=== PATIENT | female | born 1955 | race Caucasian/White ===

== ENCOUNTER 2017-07-02 20:18 | Emergency (ER) | payer BC ==
--- NOTE | 2017-07-02 21:09 | EDM.PDOC ---
ED HPI GENERAL MEDICAL PROBLEM - General Chief Complaint: General Stated Complaint: HIGH BLOOD PRESSURE Time Seen by Provider: 07/02/17 20:55 Source of Information: Reports: Patient History Limitations: Reports: No Limitations - History of Present Illness INITIAL COMMENTS - FREE TEXT/NARRATIVE: This lady comes in because of high blood pressure. She said her blood pressures been up a couple of weeks. She takes her blood pressure daily at her records it. She has an appointment with her doctor in the near future. She also gets headaches off and on all the time because of some occipital neuralgia and she does have a mild headache today. Today she went to the pharmacy and checked her blood pressure and it was about roughly 200/100 or less she took an additional one half tablet of lisinopril. So she got a total of 30 mg lisinopril today. That was at the recommendation of the pharmacist. She takes metoprolol tartrate 25 mg twice daily. Her last dose was about 6:30 PM or 3 hours ago previously she take hydrochlorothiazide. She likes salt a lot. Apparently she eats pretzels and chips and that type of thing. She doesn't use a salt substitute. Other than the mild headache she's not having any symptoms of end organ damage - Related Data Allergies Allergy/AdvReac Type Severity Reaction Status Date / Time venom-honey bee Allergy Severe Anaphylactic Verified 03/06/16 07:13 [bee venom (honey bee)] Shock cefaclor [Cefaclor] Allergy Cannot Verified 03/06/16 07:13 Remember cefuroxime Allergy Rash Verified 03/06/16 07:13 clarithromycin Allergy Cannot Verified 03/06/16 07:13 Remember colesevelam [Colesevelam] Allergy Cannot Verified 03/06/16 07:13 Remember colesevelam HCl Allergy Cannot Verified 03/06/16 07:13 [From WelChol] Remember estrogens, conjugated Allergy Other Verified 03/06/16 07:13 [From Prempro] lansoprazole [From Prevacid] Allergy Rash Verified 03/06/16 07:13 medroxyprogesterone acetate Allergy Other Verified 03/06/16 07:13 [From Prempro] metronidazole [From Flagyl] Allergy Rash Verified 03/06/16 07:13 Metronidazole HCl Allergy Rash Verified 03/06/16 07:13 [From Flagyl] nitrofurantoin Allergy Cannot Verified 03/06/16 07:13 Remember Penicillins Allergy Rash Verified 03/06/16 07:13 simvastatin Allergy Cannot Verified 03/06/16 07:13 Remember sulfamethoxazole Allergy Cannot Verified 03/06/16 07:13 [From Bactrim] Remember trimethoprim [From Bactrim] Allergy Cannot Verified 03/06/16 07:13 Remember azithromycin [From Zithromax] AdvReac Indigestion Verified 03/06/16 07:13 erythromycin base AdvReac Nausea Verified 03/06/16 07:13 [Erythromycin Base] levofloxacin [From Levaquin] AdvReac Dizziness Verified 03/06/16 07:13 metaxalone [From Skelaxin] AdvReac Dizziness Verified 03/06/16 07:13 omeprazole AdvReac Diarrhea Verified 03/06/16 07:13 tetracycline [Tetracycline] AdvReac Nausea and Verified 03/06/16 07:13 Vomiting tramadol AdvReac Dizziness Verified 03/06/16 07:13 Home Meds: Home Meds *Albuterol Sulfate 2 puff INH QID PRN 05/17/13 [History] Cholecalciferol (Vitamin D3) [Vitamin D3] 10,000 unit PO DAILY 05/17/13 [History ] EPINEPHrine [Epinephrine] 0.3 mg SQ ASDIRECTED PRN 05/17/13 [History] Lisinopril [Lisinopril] 30 mg PO DAILY 05/17/13 [History] Meclizine [Antivert] 50 mg PO TID PRN 05/17/13 [History] Cyanocobalamin (Vitamin B-12) [Vitamin B-12] 10,000 mcg SL DAILY 05/25/13 [ History] Montelukast [Singulair] 10 mg PO DAILY PRN 05/25/13 [History] Metoprolol Tartrate 25 mg PO BID 02/26/16 [History] Omeprazole 1 tab PO DAILY 07/02/17 [History] Thyroid,Pork [Nature-Throid] 1 tab PO DAILY 07/02/17 [History] Past Medical History HEENT History: Reports: Cataract, Impaired Vision Other HEENT History: wears glasses Cardiovascular History: Reports: High Cholesterol, Hypertension Other Cardiovascular History: mitral valve prolapse Respiratory History: Reports: Asthma Gastrointestinal History: Reports: Gastritis, Irritable Bowel Syndrome Other Gastrointestinal History: antral gastritis Genitourinary History: Reports: Other (See Below) Other Genitourinary History: kidney vein dysplasia Musculoskeletal History: Reports: Arthritis, Back Pain, Chronic, Fracture, Fibromyalgia, Neck Pain, Chronic, Other (See Below) Other Musculoskeletal History: bone spurs c4 &c6 Neurological History: Reports: Concussion, Headaches, Chronic, Migraines Other Neuro History: occipital neuralgia, 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 Psychiatric History: Reports: Anxiety Endocrine/Metabolic History: Reports: Hypothyroidism Hematologic History: Reports: B12 Deficiency Dermatologic History: Reports: Eczema - Infectious Disease History Infectious Disease History: Reports: Chicken Pox, Measles - Past Surgical History HEENT Surgical History: Reports: Cataract Surgery, Other (See Below) Other HEENT Surgeries/Procedures: lens implants, occiptial neuralgia GI Surgical History: Reports: Colonoscopy, EGD Social & Family History - Family History Family Medical History: Noncontributory - Tobacco Use Smoking Status *Q: Never Smoker Second Hand Smoke Exposure: No - Caffeine Use Caffeine Use: Reports: Coffee - Alcohol Use Days Per Week of Alcohol Use: 2 Number of Drinks Per Day: 1 Total Drinks Per Week: 2 - Recreational Drug Use Recreational Drug Use: No ED ROS GENERAL - Review of Systems Review Of Systems: See Below Constitutional: Reports: No Symptoms HEENT: Reports: No Symptoms Respiratory: Reports: No Symptoms Cardiovascular: Reports: No Symptoms Endocrine: Reports: No Symptoms GI/Abdominal: Reports: No Symptoms : Reports: No Symptoms Musculoskeletal: Reports: No Symptoms Skin: Reports: No Symptoms Neurological: Reports: Headache Psychiatric: Reports: No Symptoms ED EXAM, GENERAL - Physical Exam Exam: See Below Exam Limited By: No Limitations General Appearance: Alert, WD/WN, No Apparent Distress Eye Exam: Bilateral Eye: Normal Inspection Respiratory/Chest: Lungs Clear Cardiovascular: Regular Rate, Rhythm, No Murmur Extremities: Normal Inspection Skin Exam: Warm, Dry Course - Vital Signs Last Recorded V/S: Last Vital Signs Temp 35.4 C 07/02/17 20:42 Pulse 67 07/02/17 20:52 Resp 18 07/02/17 20:52 BP 200/96 H 07/02/17 20:52 Pulse Ox 98 07/02/17 20:52 - Re-Assessments/Exams Free Text/Narrative Re-Assessment/Exam: 07/02/17 21:11 Repeat blood pressure by me was 189/98. Her heart rate is consistently in the 98 -100 range. I discussed the beta blockers and target heart rate as well as the fact that beta blockers wear off my opinion was that she is is actually being underdosed since she is only getting 25 twice a day. And presently is only been about 2-1/ 2 or 3 hours since her last dose. We also discussed salt intake as well as salt substitute and potassium. She's aware that taking a lot of salt substitute could raise her potassium particularly since she's taking lisinopril and that something she needs to talk with her doctor about Departure - Departure Time of Disposition: 21:13 Disposition: Home, Self-Care 01 Condition: Fair Clinical Impression: Uncontrolled hypertension - Discharge Information Referrals: Imelda Bell PA [Primary Care Provider] - Forms: ED Department Discharge Additional Instructions: Most likely you are getting an in adequate dose of metoprolol. Increase the metoprolol to 50 mg twice daily. This dose will begin wearing off at 12 hours. It would be a good idea to check your blood pressure about an hour after taking the medications and then repeated just prior to taking your next dose. That will help your Dr. decide on the proper dose of metoprolol. Metoprolol is a beta shaun which will slow down her heart rate. The heart rate of 60-70 is ideal. If your heart rate is going below 60 it could mean that you're getting too much metoprolol. If the heart rate is staying up near 100 then you are not getting enough of the beta shaun or else it has worn off. 20 mg of metoprolol daily is a good dose and I doubt that increasing it to 30 mg per day will help very much. Cutting back on salt intake will help a lot also. Note that salt substitute is her potassium chloride and lisinopril will make your body retain potassium which can be dangerous to some people such as if you have kidney disease, so if you're starting to use salt substitute your Dr. needs to know about this. Emergency physicians no longer give medications in the emergency department to try to normalize your blood pressure. Medications are used only if your blood pressure is so high that it is causing damage to your organs and that is not happening in your case.
[2017-07-02 21:22] VITALS: BP 173/73
== END 2017-07-02 21:41 | disposition home or self-care (01) ==
LOC: JP.ED 20:18
DX: I10 Essential (primary) hypertension (principal); Z79.899 Other long term (current) drug therapy; Z88.6 Allergy status to analgesic agent; Z88.5 Allergy status to narcotic agent; Z88.0 Allergy status to penicillin; Z88.1 Allergy status to other antibiotic agents; Z88.8 Allergy status to other drugs, medicaments and biological substances; Z88.2 Allergy status to sulfonamides; Z91.030 Bee allergy status
CPT/HCPCS: 99283

== ENCOUNTER 2020-02-03 18:40 | Emergency (ER) | payer BC ==
[2020-02-03] MEDS ORDERED: Bacitracin Oint 1 GM U/D Packet TOP ONE (18:50)
--- NOTE | 2020-02-03 18:56 | EDM.PDOC ---
ED HPI GENERAL MEDICAL PROBLEM - General Chief Complaint: Laceration Stated Complaint: MEDICAL Time Seen by Provider: 02/03/20 18:50 Source of Information: Reports: Patient History Limitations: Reports: No Limitations - History of Present Illness INITIAL COMMENTS - FREE TEXT/NARRATIVE: Lubna is a 64 year old female, presents to the ED today with c/o right foot pain after she stepped on two nails. Patient states they are remodeling and she didn't see two nails sticking out of a board. Nails went through shoe and entered into carpio as aspect of foot. Patient denies any other injuries, has not taken anything for pain, declines offer for anything here. Last DT was in 05/2018 Onset: Today, Sudden Right Foot Pain Score (Numeric/FACES): 6 - Related Data Allergies Allergy/AdvReac Type Severity Reaction Status Date / Time venom-honey bee Allergy Severe Anaphylactic Verified 02/03/20 18:49 [bee venom (honey bee)] Shock cefaclor [Cefaclor] Allergy Cannot Verified 02/03/20 18:49 Remember cefuroxime Allergy Rash Verified 02/03/20 18:49 clarithromycin Allergy Cannot Verified 02/03/20 18:49 Remember colesevelam [Colesevelam] Allergy Cannot Verified 02/03/20 18:49 Remember colesevelam HCl Allergy Cannot Verified 02/03/20 18:49 [From WelChol] Remember estrogens, conjugated Allergy Other Verified 02/03/20 18:49 [From Prempro] lansoprazole [From Prevacid] Allergy Rash Verified 02/03/20 18:49 medroxyprogesterone acetate Allergy Other Verified 02/03/20 18:49 [From Prempro] metronidazole [From Flagyl] Allergy Rash Verified 02/03/20 18:49 Metronidazole HCl Allergy Rash Verified 02/03/20 18:49 [From Flagyl] nitrofurantoin Allergy Cannot Verified 02/03/20 18:49 Remember Penicillins Allergy Rash Verified 02/03/20 18:49 simvastatin Allergy Cannot Verified 02/03/20 18:49 Remember sulfamethoxazole Allergy Cannot Verified 02/03/20 18:49 [From Bactrim] Remember trimethoprim [From Bactrim] Allergy Cannot Verified 02/03/20 18:49 Remember azithromycin [From Zithromax] AdvReac Indigestion Verified 02/03/20 18:49 erythromycin base AdvReac Nausea Verified 02/03/20 18:49 [Erythromycin Base] levofloxacin [From Levaquin] AdvReac Dizziness Verified 02/03/20 18:49 metaxalone [From Skelaxin] AdvReac Dizziness Verified 02/03/20 18:49 omeprazole AdvReac Diarrhea Verified 02/03/20 18:49 tetracycline [Tetracycline] AdvReac Nausea and Verified 02/03/20 18:49 Vomiting tramadol AdvReac Dizziness Verified 02/03/20 18:49 Home Meds: Home Meds Albuterol Sulfate [Albuterol Sulfate Hfa] 2 puff IH Q1H PRN 05/17/13 [History] Cholecalciferol (Vitamin D3) [Vitamin D3] 10,000 unit PO DAILY 05/17/13 [History] EPINEPHrine [Epinephrine] 0.3 mg SQ ASDIRECTED PRN 05/17/13 [History] Meclizine [Antivert] 50 mg PO TID PRN 05/17/13 [History] Cyanocobalamin (Vitamin B-12) [Vitamin B-12] 10,000 mcg SL DAILY 05/25/13 [History] Montelukast [Singulair] 10 mg PO DAILY PRN 05/25/13 [History] Metoprolol Tartrate 25 mg PO BID 02/26/16 [History] Omeprazole 1 tab PO DAILY 07/02/17 [History] Thyroid,Pork [Nature-Throid] 1 tab PO DAILY 07/02/17 [History] Past Medical History HEENT History: Reports: Cataract, Impaired Vision Other HEENT History: wears glasses Cardiovascular History: Reports: Arrhythmia, High Cholesterol, Hypertension Other Cardiovascular History: mitral valve prolapse Respiratory History: Reports: Asthma Gastrointestinal History: Reports: Gastritis, Irritable Bowel Syndrome Other Gastrointestinal History: antral gastritis Genitourinary History: Reports: Other (See Below) Other Genitourinary History: kidney vein dysplasia Musculoskeletal History: Reports: Arthritis, Back Pain, Chronic, Fracture, Fibromyalgia, Neck Pain, Chronic, Other (See Below) Other Musculoskeletal History: bone spurs c4 &c6 herniated disc Neurological History: Reports: Concussion, Headaches, Chronic, Migraines Other Neuro History: occipital neuralgia, 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 Psychiatric History: Reports: Anxiety Endocrine/Metabolic History: Reports: Hypothyroidism Hematologic History: Reports: B12 Deficiency Dermatologic History: Reports: Eczema - Infectious Disease History Infectious Disease History: Reports: Chicken Pox, Measles - Past Surgical History HEENT Surgical History: Reports: Cataract Surgery, Other (See Below) Other HEENT Surgeries/Procedures: lens implants, occiptial neuralgia GI Surgical History: Reports: Colonoscopy, EGD Social & Family History - Family History Family Medical History: Noncontributory - Caffeine Use Caffeine Use: Reports: Coffee ED ROS GENERAL - Review of Systems Review Of Systems: Comprehensive ROS is negative, except as noted in HPI. ED EXAM, SKIN/RASH Exam: See Below Exam Limited By: No Limitations General Appearance: Alert, WD/WN, No Apparent Distress Ears: Normal External Exam Nose: Normal Inspection Throat/Mouth: Normal Oropharynx Head: Atraumatic Neck: Normal Inspection Respiratory/Chest: No Respiratory Distress Cardiovascular: Regular Rate, Rhythm Extremities: Normal Inspection Neurological: Alert, Oriented Psychiatric: Normal Affect, Normal Mood Skin: Warm, Dry, Intact, Other (puncture wounds x 2 to plantar aspect of right foot, tender to palp, cap refill distal pulses intact, no deformity) Lymphatic: No Adenopathy Course - Vital Signs Last Recorded V/S: Last Vital Signs Temp 35.7 C L 02/03/20 18:59 Pulse 74 02/03/20 18:59 Resp 18 02/03/20 18:59 BP 140/70 02/03/20 18:59 Pulse Ox 94 L 02/03/20 18:59 Puncture wounds to right foot plantar aspect. Xray negative for fracture. Tylenol as needed for pain. Clindamycin for infection prophylaxis. DT is up to date. Bacitracin twice daily for 3 days.Return with any worsening symptoms or signs of infection, patient agreeable and discharged in stable condition. - Orders/Labs/Meds Orders: Active Orders 24 hr Category Date Time Status Foot Comp Min 3V Rt [CR] Stat Exams 02/03/20 18:50 Taken Meds: Medications Discontinued Medications Generic Name Dose Route Start Last Admin Trade Name Joelq PRN Reason Stop Dose Admin Bacitracin 2 dose 02/03/20 18:50 Bacitracin Oint 1 Gm TOP 02/03/20 18:51 ONETIME ONE Departure - Departure Time of Disposition: 19:45 Disposition: Home, Self-Care 01 Condition: Good Clinical Impression: Puncture wound - injury - Discharge Information Instructions: Puncture Wound, [id number] Referrals: PCP,None [Primary Care Provider] - Forms: ED Department Discharge Additional Instructions: Your x-ray is negative for fracture. Keep clean and dry. I would recommend Bacitracin twice daily for 3 days. Tylenol as needed for pain per bottle instructions. Clindamycin as prescribed to prevent infection (you have no hx of allergy to this one) ;) Return here with any concerns or worsening symptoms. Sepsis Event Note (ED) - Focused Exam Vital Signs: Vital Signs Temp Pulse Resp BP Pulse Ox 02/03/20 18:59 35.7 C L 74 18 140/70 94 L - My Orders Last 24 Hours: My Active Orders 02/03/20 18:50 Foot Comp Min 3V Rt [CR] Stat - Assessment/Plan Last 24 Hours: My Active Orders 02/03/20 18:50 Foot Comp Min 3V Rt [CR] Stat
[2020-02-03 19:00] VITALS: BP 140/70; PULSE 74
--- NOTE | 2020-02-05 11:23 | CR ---
FOOT RIGHT 3 views CLINICAL HISTORY:Stepped on nail FINDINGS:No fractures identified. No radiopaque foreign body is seen. There are some osteoarthritic change at the first tarsometatarsal and first images MTP joint Impression: No fracture or foreign body Osteoarthritic changes
== END 2020-02-03 19:51 | disposition home or self-care (01) ==
LOC: JP.ED 18:40
DX: S91.331A Puncture wound without foreign body, right foot, initial encounter (principal); I10 Essential (primary) hypertension; J45.909 Unspecified asthma, uncomplicated; E03.9 Hypothyroidism, unspecified; Z91.030 Bee allergy status; Z88.0 Allergy status to penicillin; Z88.1 Allergy status to other antibiotic agents; Z88.2 Allergy status to sulfonamides; Z88.3 Allergy status to other anti-infective agents; Z88.8 Allergy status to other drugs, medicaments and biological substances; Z79.899 Other long term (current) drug therapy; W22.8XXA Striking against or struck by other objects, initial encounter
CPT/HCPCS: 73630-26-RT; 73630-RT; 99283; 99283-25

== ENCOUNTER 2021-11-20 09:32 | Day surgery (SDC) | payer BC ==
[~2021-11-20 09:32] MED LIST: Dextrose 5%-Lactated Ringers 1,000 ML IV SCH; Midazolam 1 MG/ML 2 ML SDV ONE; Propofol 200 MG/20 ML SDV ONE; fentaNYL 100 MCG/2 ML SDV ONE
[2021-11-20] MEDS ORDERED: Ondansetron 4 MG/2 ML SDV ONE (10:52)
[2021-11-20 13:17] VITALS: BP 150/66; PULSE 61
== END 2021-11-20 13:20 | disposition home or self-care (01) ==
LOC: JP.SDS 09:32
PROVIDERS: ATTEND Surgery
DX: K21.9 Gastro-esophageal reflux disease without esophagitis (principal); K44.9 Diaphragmatic hernia without obstruction or gangrene; K29.60 Other gastritis without bleeding; J45.909 Unspecified asthma, uncomplicated; I10 Essential (primary) hypertension; E03.9 Hypothyroidism, unspecified
CPT/HCPCS: 87081; 88305; J2250; J2405; J2704; J3010; J7121

== ENCOUNTER 2023-12-11 21:42 | Emergency (ER) | payer BC ==
[2023-12-11 22:05] LABS: BASOPHILS ABSOLUTE AUTO 0.05 K/uL (0.00-0.10); BASOPHILS PERCENT AUTO 0.5 % (0.1-1.3); EOSINOPHILS ABSOLUTE AUTO 0.23 K/uL (0.00-0.40); EOSINOPHILS PERCENT AUTO 2.2 % (0.0-5.4); HEMATOCRIT 46.3 % (34.3-46.0); HEMOGLOBIN 16.4 g/dL (11.2-15.5); IMMATURE GRAN ABSOLUTE AUTO 0.03 K/uL (0.00-0.23); IMMATURE GRAN PERCENT AUTO 0.3 % (0.0-0.7); LYMPHOCYTES ABSOLUTE AUTO 4.71 K/uL (0.8-3.3); LYMPHOCYTES PERCENT AUTO 45.7 % (11.4-47.7); MEAN CORPUSCULAR HEMOGLOBIN 31.4 pg (31.6-35.5); MEAN CORPUSCULAR HGB CONC 35.4 g/dL (31.6-35.5); MEAN CORPUSCULAR VOLUME 88.5 fL (81.4-99.0); MONOCYTES ABSOLUTE AUTO 0.65 K/uL (0.20-0.90); MONOCYTES PERCENT AUTO 6.3 % (3.3-12.6); NEUTROPHILS ABSOLUTE AUTO 4.64 K/uL (1.0-7.6); PLATELET COUNT,PLT 212 K/uL (130-375); RED BLOOD CELL COUNT 5.23 M/uL (3.77-5.24); WHITE BLOOD CELL COUNT,WBC 10.3 K/uL (3.2-11.0)
[2023-12-11] MEDS: Diltiazem 25 MG/5 ML SDV IVPUSH ONE (22:17)
[2023-12-11 22:20] LABS: A/G RATIO 0.9 (1.2-2.2); ALANINE AMINOTRANSFERASE,ALT 37 U/L (12-78); ALBUMIN 3.7 g/dL (3.4-5.0); ALKALINE PHOSPHATASE 69 U/L (46-116); ANION GAP 6.5 mmol/L (5.0-14.0); ASPARTATE AMNIOTRANSFERASE,AST 25 U/L (15-37); BILIRUBIN TOTAL 0.3 mg/dL (0.2-1.0); BLOOD UREA NITROGEN,BUN 26 mg/dL (7-18); CALCIUM 10.4 mg/dL (8.5-10.1); CARBON DIOXIDE,CO2 30 mmol/L (21-32); CHLORIDE,CL 104 mmol/L (100-108); CREATININE 0.8 mg/dL (0.6-1.0); EST CRCL DRUG DOSING (CG) 69.78 mL/min; ESTIMATED GFR 81 mL/min (>60); GLUCOSE RANDOM 133 mg/dL (74-106); POTASSIUM,K 3.9 mmol/L (3.6-5.2); PROTEIN TOTAL,TP 7.9 g/dL (6.4-8.2); SODIUM,NA 140 mmol/L (140-148); TROPONIN I HIGH SENSITIVITY 4.4 pg/mL (<=60.3)
[2023-12-11 23:31] VITALS: BP 137/63; PULSE 68
[2023-12-11] MEDS: Diltiazem 120 MG Cap.CD PO ONE (23:31)
== END 2023-12-11 23:42 | disposition home or self-care (01) ==
LOC: JP.ED 21:42
DX: I48.91 Unspecified atrial fibrillation (principal); I10 Essential (primary) hypertension; E78.00 Pure hypercholesterolemia, unspecified; E03.9 Hypothyroidism, unspecified; Z91.030 Bee allergy status; Z88.0 Allergy status to penicillin; Z88.2 Allergy status to sulfonamides; Z88.5 Allergy status to narcotic agent; Z88.8 Allergy status to other drugs, medicaments and biological substances; Z79.899 Other long term (current) drug therapy
CPT/HCPCS: 36415; 80053; 84443; 84484; 85025; 93005; 96374; 99285; A9270; J3490

== ENCOUNTER 2023-12-12 07:59 | Emergency (ER) | payer BC | END 2023-12-12 08:31 | disposition left against medical advice (07) | LOC: JP.ED 07:59 | DX: Z53.21 Procedure and treatment not carried out due to patient leaving prior to being seen by health care provider (principal) ==